=== PATIENT | male | born 1955 ===

== ENCOUNTER → 2019-05-03 | Outpatient (CLI) | payer SELFPAY ==
--- NOTE | 2019-05-03 17:00 | RAD ---
Complete abdomen ultrasound study Clinical indications: Elevated liver function tests. FINDINGS: No focal enlargement of the pancreas is seen. The intrahepatic portion of the IVC is unremarkable. No focal aneurysmal dilatation of the abdominal aorta is seen. The liver measures 17.2 cm in length. There is diffuse attenuation of sound throughout the liver consistent with fatty infiltration of the liver. This decreases the sensitivity of sonography to detect focal hepatic lesions. No focal hepatic mass is seen otherwise. The gallbladder is normal and no gallstones are seen. The extrahepatic bile duct measures 4 mm in caliber which is normal. The length of the right kidney is 12.3 cm. The length of the left kidney is 12.2 cm. No hydronephrosis or renal mass or perinephric fluid collection is seen on either side. The spleen measures 10.1 cm in length which is normal. No ascites is seen. IMPRESSION: Fatty infiltration of the liver. Electronically signed by: Babak Melo MD (05/03/2019 4:57 PM) [id number]
== END | disposition home or self-care (01) ==
LOC: US 09:19
PROVIDERS: ATTEND Family Medicine
DX: K76.0 Fatty (change of) liver, not elsewhere classified (principal)
CPT/HCPCS: 76700